=== PATIENT | female | born 1975 | race American Indian/Alaskan Native ===

== ENCOUNTER 2018-09-03 19:32 | Emergency (ER) | payer OTHER ==
[2018-09-03 20:48] LABS: Albumin 4.1 g/dL (3.9-5); BUN/Creatinine Ratio 13; Blood Urea Nitrogen 9 mg/dL (7-17); Calcium 9.3 mg/dL (8.4-10.2); Hemolysis Index 125
[2018-09-03 20:51] LABS: Bacteria,Urine 2+ /HPF (Negative); Bilirubin,Urine NEG (Negative); Blood,Urine LG (Negative); Color,Urine Red (Yellow); Urobilinogen,Urine < 2.0 mg/dL (<2.0)
[2018-09-03 20:52] LABS: RBC,Urine > 182.0 /HPF (0.0-6.0)
[2018-09-03 20:53] LABS: Alanine Aminotransferase 24 units/L (7-56)
[2018-09-03] MEDS ORDERED: BENADRYL IV ONE (20:53)
[2018-09-03] MEDS ORDERED: REGLAN IV ONE (20:53)
[2018-09-03] MEDS ORDERED: TORADOL IV ONE (20:53)
[2018-09-03] MEDS ORDERED: DILAUDID IV ONE (20:53)
[2018-09-03] MEDS ORDERED: NACL 0.9% 1000 ML 1,000 ML IV ONE (20:53)
[2018-09-03] MEDS ORDERED: HumuLIN R IV ONE (21:33)
--- NOTE | 2018-09-03 21:33 | Emergency Department Report ---
ED General Adult HPI - General Chief complaint: Abdominal Pain Stated complaint: ABD PAIN SOB HEADACHE DIZZINESS Time Seen by Provider: 09/03/18 20:35 Source: patient, old records reviewed Mode of arrival: Ambulatory Limitations: No Limitations - History of Present Illness Initial comments: 42-year-old female with a past medical history of obesity, diabetes, hepatitis C, chronic back pain, panic attacks, and previous 2 presents to the hospital with also complaints. Patient has chronic right upper quadrant pain due to "my liver". Yesterday she developed worsening pain across her abdomen. Pain is constant and worse with movement, deep inspiration and palpation. Positive nausea without vomiting or fever. This morning patient woke up with a headache to the back of the head. It was 10/10 when she woke up. She took Tylenol and it decreased within came back about 5 PM. They have currently A/10 in intensity and she reports photophobia. No blurred patient, focal numbness, weakness. Patient complains of some mild neck pain. Patient is in pain management and takes oxycodone 5 mg for chronic pain pain. Patient did not take her pain medication today. - Related Data Previous Rx's Medication Instructions Recorded Last Taken Type Blood-Glucose Meter [Accu-Chek 1 each MC QID #120 each 01/30/16 Unknown Rx Suz[facility] Connect] glyBURIDE [Glyburide] 2.5 mg PO QDAY #15 tablet 01/30/16 Unknown Rx Butalb/Acetamin/Caff 50-325-40 1 tab PO Q6HR PRN #20 tab 09/03/18 Unknown Rx [Fioricet] Allergies Allergy/AdvReac Type Severity Reaction Status Date / Time iodine Allergy Anaphylaxis Verified 01/29/16 14:33 Penicillins Allergy Unknown Verified 01/29/16 14:33 ED Review of Systems ROS: Stated complaint: ABD PAIN SOB HEADACHE DIZZINESS Other details as noted in HPI Comment: All other systems reviewed and negative ED Past Medical Hx - Past Medical History Previous Medical History?: Yes Hx Hypertension: Yes Hx Diabetes: Yes Hx Liver Disease: Yes (HEP C) Additional medical history: DJD. panic attacks. chronic pain. nodules to thyroid - Surgical History Past Surgical History?: Yes Additional Surgical History: tonsillectomy. x 2. right shoulder surgery - Social History Smoking Status: Current Every Day Smoker Substance Use Type: None - Medications Home Medications: Home Medications Medication Instructions Recorded Confirmed Last Taken Type Blood-Glucose Meter [Accu-Chek 1 each QID #120 each 01/30/16 Unknown Rx [facility] Connect] glyBURIDE [Glyburide] 2.5 mg PO QDAY #15 tablet 01/30/16 Unknown Rx Butalb/Acetamin/Caff 50-325-40 1 tab PO Q6HR PRN #20 tab 09/03/18 Unknown Rx [Fioricet] ED Physical Exam - General Limitations: No Limitations - Other Other exam information: General: No limitations, patient is alert in no acute distress Head exam: Atraumatic, normocephalic Eyes exam: Normal appearance, pupils equal reactive to light, extraocular movements intact ENT: Moist mucous membrane Neck exam: Normal inspection, full range of motion, no meningismus/nuchal rig idity, minimal tenderness to palpation Respiratory exam: Clear to auscultation bilateral, no wheezes, rales, crackles Cardiovascular: Normal rate and rhythm, normal heart sounds Abdomen: Soft, nondistended, right upper quadrant, epigastric, left upper quadrant tenderness, with normal bowel sounds, no rebound, or guarding Extremity: Full range of motion normal inspection no deformity Back: Normal Inspection, full range of motion, no tenderness Neurologic: Alert, oriented x3, cranial nerves intact, no motor or sensory deficit Psychiatric: normal affect, normal mood Skin: Warm, dry, intact ED Course Vital Signs 09/03/18 09/03/18 19:43 23:35 Temperature 97.5 F L 98.1 F Pulse Rate 77 63 Respiratory 18 18 Rate Blood Pressure 181/108 Blood Pressure 126/78 [Left] O2 Sat by Pulse 100 96 Oximetry ED Medical Decision Making - Lab Data Result diagrams: 09/03/18 21:18 09/03/18 20:25 Lab Results 09/03/18 09/03/18 09/03/18 Range/Units 20:20 20:25 20:25 WBC (4.5-11.0) K/mm3 RBC (3.65-5.03) M/mm3 Hgb (10.1-14.3) gm/dl Hct (30.3-42.9) % MCV (79-97) fl MCH (28-32) pg MCHC (30-34) % RDW (13.2-15.2) % Plt Count (140-440) K/mm3 Lymph % (Auto) (13.4-35.0) % [place] % (Auto) (0.0-7.3) % Eos % (Auto) (0.0-4.3) % Baso % (Auto) (0.0-1.8) % Lymph # (1.2-5.4) K/mm3 [place] # (0.0-0.8) K/mm3 Eos # (0.0-0.4) K/mm3 Baso # (0.0-0.1) K/mm3 Seg Neutrophils % (40.0-70.0) % Seg Neutrophils # (1.8-7.7) K/mm3 Sodium 137 (137-145) mmol/L Potassium 5.0 (3.6-5.0) mmol/L Chloride 102.1 (98-107) mmol/L Carbon Dioxide 24 (22-30) mmol/L Anion Gap 16 mmol/L BUN 9 (7-17) mg/dL Creatinine 0.7 (0.7-1.2) mg/dL Estimated GFR > 60 ml/min BUN/Creatinine Ratio 13 % Glucose 126 H (65-100) mg/dL Calcium 9.3 (8.4-10.2) mg/dL Total Bilirubin 0.30 (0.1-1.2) mg/dL AST 29 (5-40) units/L ALT 24 (7-56) units/L Alkaline Phosphatase 56 (35-129) units/L Total Protein 7.0 (6.3-8.2) g/dL Albumin 4.1 (3.9-5) g/dL Albumin/Globulin Ratio 1.4 % Lipase 41 (13-60) units/L HCG, Qual Negative (Negative) Urine Color Red (Yellow) Urine Turbidity Slightly-cloudy (Clear) Urine pH 5.0 (5.0-7.0) Ur Specific [place] 1.008 (1.003-1.030) Urine Protein 30 mg/dl (Negative) mg/dL Urine Glucose (UA) Neg (Negative) mg/dL Urine Ketones Neg (Negative) mg/dL Urine Blood Lg (Negative) Urine Nitrite Neg (Negative) Urine Bilirubin Neg (Negative) Urine Urobilinogen < 2.0 (<2.0) mg/dL Ur Leukocyte Esterase Sm (Negative) Urine WBC (Auto) 21.0 H (0.0-6.0) /HPF Urine RBC (Auto) > 182.0 (0.0-6.0) /HPF Urine Bacteria (Auto) 2+ (Negative) /HPF 09/03/18 Range/Units 21:18 WBC 8.4 (4.5-11.0) K/mm3 RBC 4.95 (3.65-5.03) M/mm3 Hgb 14.1 (10.1-14.3) gm/dl Hct 42.7 (30.3-42.9) % MCV 86 (79-97) fl MCH 29 (28-32) pg MCHC 33 (30-34) % RDW 15.2 (13.2-15.2) % Plt Count 171 (140-440) K/mm3 Lymph % (Auto) 38.8 H (13.4-35.0) % [place] % (Auto) 7.3 (0.0-7.3) % Eos % (Auto) 1.9 (0.0-4.3) % Baso % (Auto) 0.6 (0.0-1.8) % Lymph # 3.3 (1.2-5.4) K/mm3 [place] # 0.6 (0.0-0.8) K/mm3 Eos # 0.2 (0.0-0.4) K/mm3 Baso # 0.1 (0.0-0.1) K/mm3 Seg Neutrophils % 51.4 (40.0-70.0) % Seg Neutrophils # 4.3 (1.8-7.7) K/mm3 Sodium (137-145) mmol/L Potassium (3.6-5.0) mmol/L Chloride (98-107) mmol/L Carbon Dioxide (22-30) mmol/L Anion Gap mmol/L BUN (7-17) mg/dL Creatinine (0.7-1.2) mg/dL Estimated GFR ml/min BUN/Creatinine Ratio % Glucose (65-100) mg/dL Calcium (8.4-10.2) mg/dL Total Bilirubin (0.1-1.2) mg/dL AST (5-40) units/L ALT (7-56) units/L Alkaline Phosphatase (35-129) units/L Total Protein (6.3-8.2) g/dL Albumin (3.9-5) g/dL Albumin/Globulin Ratio % Lipase (13-60) units/L HCG, Qual (Negative) Urine Color (Yellow) Urine Turbidity (Clear) Urine pH (5.0-7.0) Ur Specific [place] (1.003-1.030) Urine Protein (Negative) mg/dL Urine Glucose (UA) (Negative) mg/dL Urine Ketones (Negative) mg/dL Urine Blood (Negative) Urine Nitrite (Negative) Urine Bilirubin (Negative) Urine Urobilinogen (<2.0) mg/dL Ur Leukocyte Esterase (Negative) Urine WBC (Auto) (0.0-6.0) /HPF Urine RBC (Auto) (0.0-6.0) /HPF Urine Bacteria (Auto) (Negative) /HPF - Radiology Data Radiology results: report reviewed FINAL REPORT PROCEDURE: CT HEAD/BRAIN WO CON TECHNIQUE: Computerized tomography of the head was performed without contrast material. HISTORY: headache COMPARISON: No prior studies are available for comparison. FINDINGS: Skull and scalp: Normal. Paranasal sinuses: Normal. Ventricles and subarachnoid spaces: Normal. Cerebrum: No evidence of hemorrhage, acute infarction or mass . Cerebellum and brainstem: No evidence of hemorrhage, acute infarction or mass. Vasculature: Normal. Comments: None. IMPRESSION: Normal Examination FINAL REPORT PROCEDURE: CT ABDOMEN PELVIS W CON TECHNIQUE: Computerized axial tomography of the abdomen and pelvis was performed after the IV injection of iodinated nonionic contrast. HISTORY: upper abd pain, nausea COMPARISON: No prior studies are available for comparison. FINDINGS: Visualized lower thorax: No significant abnormality. Liver: Hepatomegaly. No dominant mass or biliary dilatation. Spleen: Normal size and attenuation. Gallbladder and biliary system: Contracted gallbladder. Pancreas: Normal. Adrenals: Normal. Kidneys: Normal. No hydronephrosis. GI tract: Normal. No dilated loops of bowel. Appendix is normal. Lymph nodes and mesentery: Normal. Vasculature: Normal. Bladder: Normal. Reproductive organs: Normal uterus. Peritoneum: No free fluid. Musculoskeletal structures: Degenerative change of the lower spine. Other: None. IMPRESSION: Hepatomegaly. Contracted gallbladder. No biliary dilatation. - Medical Decision Making Patient feeling better with these treatments including Dilaudid, Reglan, Benadryl, and Toradol. CT head and abdomen and pelvis unremarkable. Patient will be discharged with Fioricet. She has narcotic pain medication at home. BP improved with pain relief - Differential Diagnosis migraine, ICH, intracranial mass, biliary colic, gastritis, pancreatitis Critical Care Time: No Critical care attestation.: If time is entered above; I have spent that time in minutes in the direct care of this critically ill patient, excluding procedure time. ED Disposition Clinical Impression: Hepatomegaly, Abdominal pain, Headache Disposition: TO HOME OR SELFCARE Is pt being admited?: No Does the pt Need Aspirin: No Condition: Stable Instructions: Abdominal Pain (ED), Acute Headache (ED) Additional Instructions: Take the medication as prescribed. Follow up with your doctor. Return if symptoms worsen as indicated by your discharge instructions Prescriptions: Butalb/Acetamin/Caff 50-325-40 [Fioricet] 1 tab PO Q6HR PRN #20 tab PRN Reason: Headache Referrals: PRIMARY CARE, [Primary Care Provider] - 3-5 Days Time of Disposition: 23:52
[2018-09-03 21:40] LABS: Hematocrit 42.7 % (30.3-42.9); Hemoglobin 14.1 gm/dl (10.1-14.3); Mean Corpuscular HGB Conc 33 % (30-34); Mean Corpuscular Volume 86 fl (79-97); Red Blood Count 4.95 M/mm3 (3.65-5.03); Red Cell Distribution Width 15.2 % (13.2-15.2)
[2018-09-03 21:41] LABS: Platelet Count 171 K/mm3 (140-440)
[2018-09-03 21:43] LABS: Basophils % (Auto) 0.6 % (0.0-1.8); Eosinophils # (Auto) 0.2 K/mm3 (0.0-0.4); Eosinophils % (Auto) 1.9 % (0.0-4.3); Lymphocytes # (Auto) 3.3 K/mm3 (1.2-5.4); Lymphocytes % (Auto) 38.8 % (13.4-35.0); Monocytes # (Auto) 0.6 K/mm3 (0.0-0.8); Monocytes % (Auto) 7.3 % (0.0-7.3)
[2018-09-03 21:44] LABS: Basophils # (Auto) 0.1 K/mm3 (0.0-0.1)
--- NOTE | 2018-09-03 22:26 | Cat Scan Report ---
FINAL REPORT PROCEDURE: CT HEAD/BRAIN WO CON TECHNIQUE: Computerized tomography of the head was performed without contrast material. HISTORY: headache COMPARISON: No prior studies are available for comparison. FINDINGS: Skull and scalp: Normal. Paranasal sinuses: Normal. Ventricles and subarachnoid spaces: Normal. Cerebrum: No evidence of hemorrhage, acute infarction or mass . Cerebellum and brainstem: No evidence of hemorrhage, acute infarction or mass. Vasculature: Normal. Comments: None. IMPRESSION: Normal Examination
--- NOTE | 2018-09-03 22:31 | Cat Scan Report ---
FINAL REPORT PROCEDURE: CT ABDOMEN PELVIS W CON TECHNIQUE: Computerized axial tomography of the abdomen and pelvis was performed after the IV inject ion of iodinated nonionic contrast. HISTORY: upper abd pain, nausea COMPARISON: No prior studies are available for comparison. FINDINGS: Visualized lower thorax: No significant abnormality. Liver: Hepatomegaly. No dominant mass or biliary dilatation. Spleen: Normal size and attenuation. Gallbladder and biliary system: Contracted gallbladder. Pancreas: Normal. Adrenals: Normal. Kidneys: Normal. No hydronephrosis. GI tract: Normal. No dilated loops of bowel. Appendix is normal. Lymph nodes and mesentery: Normal. Vasculature: Normal. Bladder: Normal. Reproductive organs: Normal uterus. Peritoneum: No free fluid. Musculoskeletal structures: Degenerative change of the lower spine. Other: None. IMPRESSION: Hepatomegaly. Contracted gallbladder. No biliary dilatation.
[2018-09-03 23:36] VITALS: BP 126/78
== END 2018-09-04 00:02 | disposition home or self-care (01) ==
LOC: ED 19:32
DX: R16.0 Hepatomegaly, not elsewhere classified (principal); I10 Essential (primary) hypertension; E11.9 Type 2 diabetes mellitus without complications; G89.29 Other chronic pain; F17.200 Nicotine dependence, unspecified, uncomplicated; Z88.0 Allergy status to penicillin; Z88.8 Allergy status to other drugs, medicaments and biological substances
CPT/HCPCS: 36415; 70450; 74177; 80053; 81001; 83690; 84703; 85025; 93005; 93010; 96374; 96375; 99284; J1170; J1200; J1885; J2765; J7030; Q9967; 96361

== ENCOUNTER 2019-04-22 18:22 | Emergency (ER) | payer OTHER ==
[2019-04-22] MEDS ORDERED: ASPIRIN PO ONE (18:36)
[2019-04-22 19:05] LABS: Basophils # (Auto) 0.1 K/mm3 (0.0-0.1); Basophils % (Auto) 0.9 % (0.0-1.8); Eosinophils # (Auto) 0.1 K/mm3 (0.0-0.4); Eosinophils % (Auto) 0.6 % (0.0-4.3); Hematocrit 41.9 % (30.3-42.9); Lymphocytes # (Auto) 3.9 K/mm3 (1.2-5.4); Mean Corpuscular HGB Conc 33 % (30-34); Mean Corpuscular Volume 85 fl (79-97); Monocytes # (Auto) 0.8 K/mm3 (0.0-0.8); Monocytes % (Auto) 6.2 % (0.0-7.3); Platelet Count 340 K/mm3 (140-440); Red Blood Count 4.94 M/mm3 (3.65-5.03); Red Cell Distribution Width 15.7 % (13.2-15.2)
--- NOTE | 2019-04-22 19:11 | Event Note ---
ED Screening Note Date of service: 04/22/19 Time: 18:48 ED Screening Note: 43 y old female presents to ED cc of left sided chestpain This initial assessment/diagnostic orders/clinical plan/treatment(s) is/are subject to change based on patients health status, clinical progression and re-assessment by fellow clinical providers in the ED. Further treatment and workup at subsequent clinical providers discretion. Patient/guardian urged not to elope from the ED as their condition may be serious if not clinically assessed and managed. Initial orders include:
[2019-04-22 19:28] LABS: BUN/Creatinine Ratio 8; Blood Urea Nitrogen 6 mg/dL (7-17); Calcium 9.7 mg/dL (8.4-10.2); Hemolysis Index 4
--- NOTE | 2019-04-22 20:04 | XRay Report ---
CHEST 2 VIEWS INDICATION / CLINICAL INFORMATION: Chest Pain. COMPARISON: 07/03/2008 FINDINGS: SUPPORT DEVICES: None. HEART / MEDIASTINUM: No significant abnormality. LUNGS / PLEURA: No significant pulmonary or pleural abnormality. No pneumothorax. ADDITIONAL FINDINGS: No significant additional findings. IMPRESSION: 1. No acute findings. No interval change. Signer Name: Sari Rojo MD Signed: 04/22/2019 7:59 PM Workstation Name: [id number]
[2019-04-22 20:37] VITALS: BP 149/92
[2019-04-22] MEDS ORDERED: XANAX PO ONE (20:43)
--- NOTE | 2019-04-22 20:49 | Emergency Department Report ---
ED Anxiety HPI - General Chief Complaint: Chest Pain Stated Complaint: CHEST PAIN Time Seen by Provider: 04/22/19 18:35 Source: patient, EMS Mode of arrival: Wheelchair - History of Present Illness Initial Comments: 43-year-old female with past medical history obesity, hypertension, hepatitis C, panic attacks, and chronic pain, and previous thyroidectomy currently on Synthroid presents to the hospital complaints of panic attack prior to arrival. Patient states that she ran out of her Xanax 0.5 mg twice a day scheduled dosing 4 days ago. Patient thought that her panic attacks have improved since having a thyroidectomy she might not need the medications every day so she missed a appointment with her primary care doctor. She has rescheduled appointment for tomorrow. Patient states that she had a panic attack yesterday but was able to calm herself down. Today she was in [employer] and her daughter was crying which made her have a panic attack. Symptoms included chest pressure, shortness of breath, tachypnea, and tingling to perioral area, hands, and feet. Symptoms resolved prior to arrival and patient now feels better. She relates that this is similar to her previous panic episodes in the past. She denies calf tenderness, leg edema, recent travel. No history of recent DVT, control pill use. - Related Data Home Medications: Previous Rx's Medication Instructions Recorded Last Taken Type Blood-Glucose Meter [Accu-Chek 1 each MC QID #120 each 01/30/16 Unknown Rx [facility]] glyBURIDE [Glyburide] 2.5 mg PO QDAY #15 tablet 01/30/16 Unknown Rx Butalb/Acetamin/Caff 50-325-40 1 tab PO Q6HR PRN #20 tab 09/03/18 Unknown Rx [Fioricet] Ondansetron [Zofran Odt] 4 mg PO Q8HR PRN #20 tab.rapdis 09/03/18 Unknown Rx Allergies/Adverse Reactions: Allergies Allergy/AdvReac Type Severity Reaction Status Date / Time iodine Allergy Anaphylaxis Verified 01/29/16 14:33 Penicillins Allergy Unknown Verified 01/29/16 14:33 ED Review of Systems ROS: Stated complaint: CHEST PAIN Other details as noted in HPI Comment: All other systems reviewed and negative ED Past Medical Hx - Past Medical History Previous Medical History?: Yes Hx Hypertension: Yes Hx Diabetes: Yes Hx Liver Disease: Yes (HEP C) Additional medical history: DJD. panic attacks. chronic pain. nodules to thyroid - Surgical History Past Surgical History?: Yes Additional Surgical History: tonsillectomy. x 2. right shoulder surgery. thyroidectomy - Social History Smoking Status: Current Every Day Smoker Substance Use Type: None - Medications Home Medications: Home Medications Medication Instructions Recorded Confirmed Last Taken Type Blood-Glucose Meter [Accu-Chek 1 each MC QID #120 each 01/30/16 Unknown Rx [facility] Connect] glyBURIDE [Glyburide] 2.5 mg PO QDAY #15 tablet 01/30/16 Unknown Rx Butalb/Acetamin/Caff 50-325-40 1 tab PO Q6HR PRN #20 tab 09/03/18 Unknown Rx [Fioricet] Ondansetron [Zofran Odt] 4 mg PO Q8HR PRN #20 tab.rapdis 09/03/18 Unknown Rx ED Physical Exam - General Limitations: No Limitations - Other Other exam information: General: No acute distress Head: Atraumatic Eyes: Normal appearance, Pupils equal and reactive to light, extraocular movements intact ENT: Normal oropharynx Neck: Normal appearance, no posterior or midline tenderness, no meningismus Chest: Clear to auscultation bilaterally, no wheezes, rales, or crackles CV: Regular rate and rhythm Abdomen: soft, nontender, nondistended, no rebound or guarding Back: Nontender Extremity: Normal inspection, full range of motion, nontender, no calf tenderness or leg edema Neuro: Alert and oriented 3, speech clear, no gross motor or sensory deficit Skin: No rash, redness, warmth ED Course Vital Signs 04/22/19 04/22/19 04/22/19 18:46 20:36 20:44 Temperature 97.9 F Pulse Rate 98 H 81 Respiratory 22 16 Rate Blood Pressure 158/117 149/92 [Left] O2 Sat by Pulse 99 98 Oximetry ED Medical Decision Making - Lab Data Result diagrams: 04/22/19 18:41 04/22/19 18:41 Lab Results 04/22/19 04/22/19 Range/Units 18:41 18:41 WBC 13.0 H (4.5-11.0) K/mm3 RBC 4.94 (3.65-5.03) M/mm3 Hgb 14.0 (10.1-14.3) gm/dl Hct 41.9 (30.3-42.9) % MCV 85 (79-97) fl MCH 28 (28-32) pg MCHC 33 (30-34) % RDW 15.7 H (13.2-15.2) % Plt Count 340 (140-440) K/mm3 Lymph % (Auto) 30.0 (13.4-35.0) % [place] % (Auto) 6.2 (0.0-7.3) % Eos % (Auto) 0.6 (0.0-4.3) % Baso % (Auto) 0.9 (0.0-1.8) % Lymph # 3.9 (1.2-5.4) K/mm3 [place] # 0.8 (0.0-0.8) K/mm3 Eos # 0.1 (0.0-0.4) K/mm3 Baso # 0.1 (0.0-0.1) K/mm3 Seg Neutrophils % 62.3 (40.0-70.0) % Seg Neutrophils # 8.1 H (1.8-7.7) K/mm3 Sodium 138 (137-145) mmol/L Potassium 4.4 (3.6-5.0) mmol/L Chloride 100.6 (98-107) mmol/L Carbon Dioxide 20 L (22-30) mmol/L Anion Gap 22 mmol/L BUN 6 L (7-17) mg/dL Creatinine 0.8 (0.7-1.2) mg/dL Estimated GFR > 60 ml/min BUN/Creatinine Ratio 8 % Glucose 130 H (65-100) mg/dL Calcium 9.7 (8.4-10.2) mg/dL Troponin T < 0.010 (0.00-0.029) ng/mL - EKG Data -: EKG Interpreted by [facility] EKG shows normal: sinus rhythm, axis (qrs 33), QRS complexes (qrsd 90), ST-T waves (no stemi/ t inv) Rate: normal (75) - Radiology Data Radiology results: report reviewed cxr: naf - Medical Decision Making Heart score 2-3 (based on low to moderate suspicion) pt states similar to panic attacks in past xanax 0.5mg given x1 pt plans to see her MD in am. - Differential Diagnosis anxiety, mi, pe, arrhythmia Critical Care Time: No Critical care attestation.: If time is entered above; I have spent that time in minutes in the direct care of this critically ill patient, excluding procedure time. ED Disposition Clinical Impression: Panic attack, Chronic prescription benzodiazepine use, Noncompliance with medication regimen Disposition: - TO HOME OR SELFCARE Is pt being admited?: No Does the pt Need Aspirin: No Condition: Stable Instructions: Panic Disorder (ED), Alprazolam (By mouth) Additional Instructions: Take the medication as prescribed. Follow-up with your doctor or the doctor/cl inic provided. Return is symptoms worsen as indicated by your discharge instructions. Referrals: your, doctor [Other] - 04/23/19 Time of Disposition: 21:04
== END 2019-04-22 21:24 | disposition home or self-care (01) ==
LOC: ED 18:22
DX: F41.0 Panic disorder [episodic paroxysmal anxiety] (principal); Z91.14 Patient's other noncompliance with medication regimen; I10 Essential (primary) hypertension; E11.9 Type 2 diabetes mellitus without complications; F17.200 Nicotine dependence, unspecified, uncomplicated; G89.29 Other chronic pain; Z98.890 Other specified postprocedural states; Z79.899 Other long term (current) drug therapy; Z88.0 Allergy status to penicillin; Z88.8 Allergy status to other drugs, medicaments and biological substances
CPT/HCPCS: 36415; 71046; 80048; 84484; 85025; 93005; 93010; 99284